=== PATIENT | female | born 1965 | race Caucasian/White ===

== ENCOUNTER 2019-12-06 17:59 | Emergency (ER) | payer BC, SELFPAY ==
[2019-12-06 18:00] VITALS: BP 161/99; PULSE 64; RESP 19; TEMP 36.6; O2SAT 99; BMI 25.0
[2019-12-06 18:23] LABS: Bacteria 0 SEEN /hpf (None Seen); Mucous, Urine 0 SEEN /hpf (<or=2+); Squamous Epithelial Cells - UA 0 SEEN /hpf (5-10); White Blood Cells 0 SEEN /hpf (0-5)
[2019-12-06 18:26] LABS: Color, Urine Yellow (Yellow); Glucose, Dipstick Normal (Normal); Ketone-Dipstick Negative (Negative); Leukocyte Esterase-Dipstick Negative /ul (Negative); Nitrite-Dipstick Negative (Negative); Occult Blood-Urine 25 /ul (Negative); Protein-Dipstick Negative (Negative); Specific Gravity, Urine 1.015 (1.002-1.030); Urine Bilirubin Dipstick Negative (Negative); Urine Clarity Clear (Clear); Urine Urobilinogen Normal (Normal)
[2019-12-06 18:42] LABS: Red Blood Cells-Urine 0-5 SEEN /hpf (0-5)
--- NOTE | 2019-12-06 19:07 | CT_ITS ---
STUDY: CT ABDOMEN AND PELVIS WITHOUT CONTRAST REASON FOR EXAM: Female, 54 years old. LT ABD PAIN STARTED @ 3PM RADIATION DOSAGE (If Supplied By Facility): CTDIvol = ( 7.00 ) mGy, DLP = ( 367.02 ) mGycm TECHNIQUE: Transaxial images were obtained from the dome of the diaphragm to the symphysis pubis without oral contrast, and without intravenous contrast. Sagittal and coronal images were reconstructed. Individualized dose optimization techniques were used for this CT. COMPARISON: None. FINDINGS: There is interstitial thickening and emphysematous changes at the lung bases. Heart is mildly enlarged. Normal liver. Normal gallbladder and extrahepatic biliary system. Normal spleen. Normal pancreas. Normal bilateral adrenal glands. Normal right kidney. There is moderate left renal pelvocaliectasis with fluid in the perirenal fat and periureteral fat with hydroureter secondary to a stone in the distal left ureter at the ureterovesical junction measuring approximately 3 mm in size Normal visualized stomach. Normal small intestine. Diverticular disease of the distal descending and sigmoid colon without evidence for acute diverticulitis.. No evidence for acute appendicitis Normal abdominal aorta. Normal inferior vena cava. Normal retroperitoneum. Normal urinary bladder. Normal abdominal wall. Dorsal spine demonstrates mild spondylosis CT/Abdomen/Pelvis without Cont IMPRESSION: Moderate left hydroureteronephrosis secondary to a tiny stone in the distal left ureter Diverticular changes of the descending and sigmoid colon without evidence for acute diverticulitis. Electronically Signed: Pramod Casey MD at 20:19 EDT , Service support ,
[2019-12-06 19:10] LABS: Absolute Lymphocyte Count 1.06 X10^3/uL (0.83-4.51); Absolute Neutrophil Count 7.9 X10^3/uL (2.0-7.7); Basophil# 0.04 X10^3/uL; Basophil% 0.4 % (0-1); Hematocrit 43.1 % (37-47); Hemoglobin 13.9 g/dL (12.0-15.0); Lymphocyte # 1.06 X10^3/ul (4.0); Lymphocyte % 11.5 % (19-41); Mean Corp Hgb Conc 32.3 g/dL (32-36); Mean Corpuscular Hgb 28.3 pg (27.0-32.0); Mean Corpuscular Volume 87.6 fL (81-99); Mean Platelet Vol. 10.5 fl (6.2-12.0); Monocyte# 0.16 X10^3/uL; Monocyte% 1.7 % (0-10); NRBC Flagged by Analyzer 0 % (0-5); Neutrophil # 7.85 X10^3/uL (2.7-7.7); Neutrophil % 85.2 % (47-70); Platelet Count 236 K/mm3 (150-450); RBC Distribution Width CV 13.4 % (11.6-14.6); Red Blood Count 4.92 M/mm3 (4.2-5.4); White Blood Count 9.2 K/mm3 (4.4-11.0)
[2019-12-06] MEDS: Ondansetron 4 MG/2 ML Vial IV (19:17)
[2019-12-06] MEDS: 0.9% Normal Saline 1,000 ML 1000 ML IV (19:17)
[2019-12-06] MEDS: Morphine 4 MG/ML Syringe IV (19:17)
[2019-12-06] MEDS: Ketorolac 30 MG/ML Syringe IV (19:17)
[2019-12-06 19:29] LABS: Anion Gap 8 (5-15); BUN 29 mg/dL (7-18); BUN/Creat Ratio 27.4 RATIO (10-20); Calcium,Total 9.5 mg/dL (8.5-10.1); Chloride 100 mmol/L (98-107); Creatinine, Serum 1.06 mg/dL (0.55-1.02); EST Glomerular Filtration Rate 57 mL/min (>60); Est Glom Filt Rate - Afr Amer 69 mL/min (>60); Estimated Creatinine Clearance 53.96 ml/min; Glucose 164 mg/dL (74-106); Potassium 3.6 mmol/L (3.5-5.1); Sodium Level 137 mmol/L (136-145)
[2019-12-06 20:00] VITALS: BP 162/88; PULSE 48; RESP 15
--- NOTE | 2019-12-06 21:14 | ED.DCSUM_ITS ---
- ER Visit Summary Date of Service: 12/06/19 Chief Complaint: Abdominal pain History of Present Illness: The patient is a 54 F who presents with abdominal pain that began today. Patient states the pain is over the left side of her abdomen. Patient describes the pain is sharp and aching. Patient states the pain is worse over the left lower quadrant but also radiates into her left flank area. Patient admits to some nausea and vomiting. Patient denies any hematemesis or coffee-ground emesis. Patient denies any diarrhea, melena, or hematochezia. Patient admits to urinary frequency but denies any dysuria or hematuria. Patient denies any history of prior similar symptoms. Patient states that there is no position of comfort. Physical Examination: Vital signs are stable. Patient is afebrile. Patient is in no acute distress. Oral mucosa is pink and moist. Neck is supple. Trachea is midline. There is no JVD. Heart was regular rate and rhythm. Lungs are clear and equal bilaterally. Abdomen is soft. Bowel sounds are normal. There is some mild left lower quadrant tenderness. There is no rebound or guarding noted. There is some mild left CVA tenderness. Cranial nerves II through XII are intact. There are no focal motor or sensory deficits noted. Extremities are intact. There is no calf tenderness or edema. Test Results: CBC, basic metabolic profile, and urinalysis were obtained and were essentially within normal limits. CT scan of the abdomen and pelvis was obtained. There is a 3 mm left distal ureteral calculus with hydronephrosis and hydroureter. This was interpreted by the radiologist and reviewed by myself. Emergency Department Course and Treatment: Patient was given IV fluids, Toradol, morphine, and Zofran here. Patient states her pain was resolved on reevaluation. Patient was instructed to drink plenty of fluids. Patient was given a prescription for short course of [place]. Patient was instructed to follow-up with her primary care physician in 5 to 7 days. Patient understood and was agreeable with the plan. All questions were answered. Disposition: Discharge home Impression: Left ureteral calculus This note was generated with [employer]er[employer] software. It may contain incorrect words, spelling, and punctuation that were not noted in review of the chart prior to signing ED Disposition - Plan for ED Patient: Disposition: Home or Assisted Living Diagnosis: Left ureteral calculus Instructions: ED Renal Stone w Colic Prescriptions: Hydrocodone Bitart/Apap 5-325 [[place] 5MG-325MG] 1 tab PO Q6H PRN PRN 3 Days #10 tab PRN Reason: Pain Prescription Printed Referrals: Yuridia Christiansen MD [Primary Care Provider] - Clifton Mercado MD [STAFF PHYSICIAN] -
[2019-12-06 21:37] VITALS: BP 149/90; PULSE 55; RESP 15
== END 2019-12-06 21:38 | disposition home or self-care (01) ==
PROVIDERS: Emergency Provider Emergency Medicine; PCP Internal Medicine
DX: N13.2 Hydronephrosis with renal and ureteral calculous obstruction (principal)
CPT/HCPCS: 74176; 80048; 81001; 85025; 96361; 96374; 96375; 99283; J7030; A4216; J2405

== ENCOUNTER → 2019-12-17 13:54 | Outpatient (CLI) | payer BC, SELFPAY ==
[2019-12-06 18:00] VITALS: BMI 25.0
--- NOTE | 2019-12-17 14:00 | RAD_ITS ---
STUDY: X-RAY - ABDOMEN/PELVIS REASON FOR EXAM: Female, 54 years old. Hx of kidney stones. checking for kidney stones on the left side. TECHNIQUE: AP supine and upright views of the abdomen and pelvis. COMPARISON: None. FINDINGS: Normal visualized lung bases. There is an abundance of fecal material throughout the colon. There is no demonstrated free abdominal air. The visualized liver, spleen and kidneys are grossly normal in size and morphology. Stable asymmetric 3 mm stone in the left hemipelvis could be within the distal left ureter Normal soft tissue structures. Normal visualized osseous structures. RAD/Abdomen Single View IMPRESSION: No acute findings, routine stool Likely distal left ureterolithiasis Electronically Signed: Thomas Suarez MD at 17:01 EDT , Service support ,
== END ==
PROVIDERS: PCP Internal Medicine; Referring Provider Urology; Visit Provider Urology
DX: N20.1 Calculus of ureter (principal)
CPT/HCPCS: 74018

== ENCOUNTER 2019-12-19 10:31 | Day surgery (SDC) | payer BC, SELFPAY ==
--- NOTE | 2019-12-19 | CALC_PTH ---
PATIENT: WILEY TAI [place] [facility] [id number] AGE/SX: 54/F ROOM: RE12/19/[address]: Dr. Clifton Mercado MD : 1965 BED: DIS: 12/19/2019 SPEC #: [id number] RECD: 12/19/19 15:11 STATUS: EDIN FELICIANO #: [id number] DANNIE: 12/19/19 00:[address]: Clifton Mercado DEPT: SURGICAL PATHOLOGY RECD BY: Ed York ENTERED: 12/20/19 08:35 SP TYPE: Calculi OTHR DR: Yuridia Christiansen MD Tissues: CALCULI Procedures: Surgery Specimen Level I HEADER OPERATION: Cystoscopy, left ureteroscopy, balloon dilatation, basket extraction PRE-OP DIAGNOSIS: Left ureteral calculus TISSUE SUBMITTED: Left ureteral calculus GROSS DIAGNOSIS A fragment of stone, clinically left ureteral calculus, submitted entirely for stone analysis. SJ:aure 12/20/19 COMMENT The calculus is submitted in its entirety for chemical stone analysis. The results from this study will be reported separately. GROSS DESCRIPTION Received is one container labeled with the patient's name and designated left ureteral calculus. The specimen consists of a fragment of black stone measuring 0.5 x 0.4 x 0.2 cm. The entire specimen is submitted for stone analysis. / DAVID:arue 12/20/19 CPT: 78819
[2019-12-19 11:06] VITALS: BP 145/88; PULSE 58; RESP 16; TEMP 37.4; O2SAT 99; BMI 24.5
[2019-12-19] MEDS: Lactated Ringers 1,000 ML 100 ML IV (11:17)
--- NOTE | 2019-12-19 12:16 | HP.PCM_ITS ---
Problem List (1) Ureteral calculus, left Status: Acute History of Present Illness Date of Admission: 12/19/19 Chief Complaint: Ureteral calculi left The patient is a 54 year old female who presents to my office with a stone in the distal left ureter and is been having severe pain off-and-on x-ray was done confirmed the stone has not passed yet. She presents today for ureteroscopy laser and extraction of stone fragment probable probable stent placement on the left side. Past Medical History Allergies No Known Allergies Allergy (Verified 12/18/19 09:35) Home Medications: Ambulatory Orders Medication Instructions Recorded Hydrocodone/Acetaminophen 1 ea PO PRN PRN 12/18/19 [Hydrocodon-Acetaminophen 5-325] Tamsulosin HCl [Flomax] 0.4 mg PO DAILY 12/18/19 Surgical History: no surgical history Smoking Status: Never smoker Tobacco Use: Non-smoker Review of Systems Constitutional: Denies: Chills, Fever, Weight Change HEENT: Denies: Head Aches, Sinus Congestion, Sinus Drainage Cardiovascular: Denies: Chest Pain, Palpitations Respiratory: Denies: Cough, Shortness of breath at rest, Sputum production Gastrointestinal: Denies: Abdominal Pain, Nausea, Vomiting Genitourinary: Denies: Dysuria Musculoskeletal: Denies: Joint Pain, Joint Tenderness Skin: Denies: Rash, Wounds Neurological: Denies: Numbness, Tingling, Focal weakness Psychiatric: Denies: Anxiety, Depression, Homicidal Ideations, Suicidal Ideatio ns Hematologic/ Lymphatic: Denies: Easy Bruising, Easy Bleeding VTE Information - Inpt Only VTE Present on Admission: No VTE Mechan Device Prophylaxis: SCD's Patient Problems: Active and Suspected Problems Ureteral calculus, left (Acute) - Physical Exam Vitals/I&O's: Vital Signs Temp Pulse Resp BP Pulse Ox 99.3 F H 58 L 16 145/88 H 99 12/19/19 11:06 12/19/19 11:06 12/19/19 11:06 12/19/19 11:12/19/19 11:06 Oxygen Delivery Method Room Air Weight: 66.9 kg Body Mass Index (BMI) 24.5 General: Alert, Oriented x3, Cooperative HEENT: Atraumatic, PERRLA, EOMI, Normocephalic Neck: Supple, No JVD, Negative Carotid Bruits Lungs: Clear to auscultation, Normal air movement Cardiovascular: Regular rate, No murmurs Abdomen: Bowel Sounds Present, Soft, Non Tender Extremities: No edema, Capillary Refill Less than 3 Seconds Skin: No rashes, No breakdown Musculoskeletal: No Tenderness to Palpation of Joints or Extremities Neurological: Cranial nerves II-XII grossly intact Psych/Mental Status: Normal Affect, Appropriate Laboratory Results 12/18/19 16:30: COVID-19 (NOREEN) Negative Current Medications Lactated Ringer's () 1,000 mls @ 100 mls/hr IV .Q10H NGHIA Last Admin: 12/19/19 11:17 Dose: 100 mls/hr Documented by: Assessment/Plan All Active Problems Ureteral calculus, left (Acute) Plan to proceed with left ureteroscopy laser and stent balloon dilation.
--- NOTE | 2019-12-19 12:17 | DCINST_ITS ---
Discharge Diet: Light diet - advance as tolerated Discharge Activity: Return to Normal Activity Call your doctor if your incision/area has: Sudden Increased Bleeding Call your doctor if you observe: Fever of 101 or Higher Suture Line Care: Avoid Pulling/Pushing, Avoid Pinching/Bending Allergies/Adverse Reactions: Allergies No Known Allergies Allergy (Verified 12/18/19 09:35) Medications to take at Discharge Hydrocodone/Acetaminophen [Hydrocodon-Acetaminophen 5-325] 1 ea PO PRN PRN 12/18/19 Tamsulosin HCl [Flomax] 0.4 mg PO DAILY 12/18/19 Primary Care Physician: Yuridia Christiansen MD [Primary Care Provider] - Test Results: Test results from this visit will be discussed in further detail at your follow- up appointment, if applicable. Please Follow Up With: Clifton Mercado MD When: please call to make an appointment.
[2019-12-19] MEDS: Ketorolac 15 MG/ML Vial IV (12:18)
[2019-12-19] MEDS: Cefazolin 2 GM in 0.9% Normal Saline 100 ML IV (12:20)
--- NOTE | 2019-12-19 12:44 | PCM.OPRPT ---
Problem List (1) Ureteral calculus, left Status: Acute Report of Operation Date of Procedure: 12/19/19 Pre-Operative Diagnosis: Left ureteral calculi Post-Operative Diagnosis: Same Surgery/Procedure Performed:: Cystoscopy, balloon dilation of the left ureter, ureteroscopy basket of stone and extraction and left stent placement, interpretation fluoroscopic images. Description of Surgical Findings:: 54-year-old female has failed to pass the stone spontaneously been having pain off-and-on today working to proceed with ureteroscopy and laser and extraction of stone. She was taken back to the operating room after smooth induction of general anesthesia she was placed in dorsolithotomy position and went into the bladder with a 21 Chinese rigid cystoscopy, the entire bladder was normal the trigone was normal there is no tumors or stones seen within the bladder I then cannulated the left ureteral orifice the wire went up quite easily and then on fluoroscopy could think he could still see a stone there so I put a balloon dilator over the wire balloon dilated the distal ureter with a 12 Chinese balloon dilator I then left the wire in place the next the wire went in with a offset SlimLine rigid ureteroscope was able to get into the ureter quite easily I then encountered the stone in the distal ureter I used the basket and I grabbed the stone in entirety and then gently pulled out the ureter. And then over the wire we then advanced a stent up into the kidney under fluoroscopic guidance. Once the stent was in good position we pulled the wire the stent: The kidney bladder good position the bladder was drained patient anesthetic reversed taken back to PACU good condition we will see her next week to remove the stent. Interpretation fluoroscopic images, on fluoroscopy we could see a stone in the distal ureter and the stent was put in at the end of the case it could see the stent coil proper properly in the bladder. Type of Anesthesia:: General Drains: stent left side - Admit VTE Documentation VTE Present on Admission: No VTE Mechan Device Prophylaxis: SCD's
[2019-12-19 13:03] VITALS: BP 132/91; BP 145/88; PULSE 94; RESP 16; TEMP 36.8; O2SAT 95
[2019-12-19 13:15] VITALS: BP 139/96; BP 145/88; PULSE 76; RESP 16; O2SAT 96
[2019-12-19 13:18] VITALS: BP 139/96; BP 145/88; PULSE 86; RESP 16; TEMP 36.8; O2SAT 97
[2019-12-19 14:00] VITALS: BP 135/77; BP 145/88; PULSE 79; RESP 18; TEMP 36.8; O2SAT 96
== END 2019-12-19 14:05 | disposition home or self-care (01) ==
LOC: SDC 10:31 → AC 10:33
PROVIDERS: Anesthesiology; PCP Internal Medicine; Referring Provider Urology; Visit Provider Urology
PROC: 0TJ98ZZ Inspection of Ureter, Via Natural or Artificial Opening Endoscopic (ICD-10-PCS; CPT 52352; principal; 2019-12-19 11:50)
DX: N20.1 Calculus of ureter (principal); Z11.59 Encounter for screening for other viral diseases; R01.1 Cardiac murmur, unspecified
CPT/HCPCS: 52332; 52352; 76000; 82360; 87635; 88300; G2023; J7120; C1769; C2617; J2405; U0003

== ENCOUNTER → 2021-04-05 14:34 | Outpatient (CLI) | payer BC, SELFPAY ==
--- NOTE | 2021-04-05 14:45 | RAD_ITS ---
HISTORY: CALCULUS OF KIDNEY EXAMINATION/TECHNIQUE: XR Abdomen 1 View: Supine AP view, 2 images COMPARISON: Abdominal radiographs from 12/17/19 FINDINGS: LINES AND TUBES: None. BOWEL GAS PATTERN: Non-obstructive. No pathologic bowel or stomach distention. FREE AIR: Not assessed on a single supine view. CALCIFICATIONS: No abnormal calcifications observed. LOWER CHEST: No acute pathology. BONES AND SOFT TISSUES: Minimal levoscoliotic curvature lumbar spine again noted with degenerative disc space narrowing at L4-5. RAD/Abdomen Single View IMPRESSION: No radiographic evidence of nephrolithiasis or other acute abnormality. Follow-up as clinically warranted. at 2352 Reported and signed by: Abdullahi Greenberg MD Electronically Signed: Abdullahi Greenberg MD at 23:51 EDT Tel , Service support ,
== END ==
PROVIDERS: PCP Internal Medicine; Visit Provider Urology
DX: N20.0 Calculus of kidney (principal)
CPT/HCPCS: 74018

== ENCOUNTER 2023-12-11 16:00 | Emergency (ER) | payer OTHER, SELFPAY ==
[2023-12-11 16:04] VITALS: BP 179/104; PULSE 79; RESP 18; TEMP 36.4; O2SAT 99
--- NOTE | 2023-12-11 17:02 | EDS_ITS ---
HPI History of Present Illness Chief Complaint: Laceration Detail of Chief Complaint: Laceration to right thumb Narrative Narrative: Patient presents with laceration to right thumb that occurred while at work today. Patient states that she was using a stack cutter when her thumb accidentally bumped the blade and sustained laceration. She went to urgent care where they attempted to perform a digital block and stop the bleeding unsuccessfully so she was referred to the emergency department. Patient is right-hand dominant. She is up-to-date on tetanus. PFSH PFSH Home Medications ?Medication ?Instructions ?Recorded ?Last Taken ?Type tamsulosin 0.4 mg capsule 0.4 mg PO DAILY 12/18/19 Unknown History acetaminophen 500 mg tablet 500 mg PO Q4H PRN PRN Pain Score 12/19/19 Unknown Rx 1-03/21 #20 tabs ibuprofen 600 mg tablet 600 mg PO Q6H PRN PRN Pain Score 12/19/19 Unknown Rx 1-03/21 #20 tabs phenazopyridine 100 mg tablet 100 mg PO TID #14 tabs 12/19/19 Unknown Rx cephalexin 500 mg capsule 500 mg PO Q6 #40 CAPSULES 12/11/23 Unknown Rx cephalexin 500 mg capsule 500 mg PO Q6 #40 CAPSULES 12/11/23 Unknown Rx hydrocodone-acetaminophen 5-325mg 1 tab PO Q4H PRN PRN Pain 2 days 12/11/23 Unknown Rx 5mg-325mg #14 TABLETS hydrocodone-acetaminophen 5-325mg 1 tab PO Q4H PRN PRN Pain 2 days 12/11/23 Unknown Rx 5mg-325mg #14 TABLETS Allergy/AdvReac Type Severity Reaction Status Date / Time No Known Allergies Allergy Verified 12/11/23 16:04 Social History Smoking Status: Never smoker ROS ROS ED Review of Systems ROS Unobtainable: other Constitutional Constitutional ED: Reports lethargy; Denies chills, fever(s), sweats or weight loss Eyes Eyes: Denies blurry vision, change in vision or diplopia ENT ENT ED: Denies rhinorrhea or sore throat Cardiovascular Cardiovascular: Denies chest pain, orthopnea or racing heartbeat Respiratory/Chest Respiratory/Chest: Denies cough, dyspnea, dyspnea on exertion, orthopnea or sputum Gastrointestinal Gastrointestinal: Denies abdominal pain, diarrhea, nausea or vomiting Genitourinary Genitourinary ED: Denies dysuria, hematuria or urinary frequency Musculoskeletal Musculoskeletal: Reports other Details: Right thumb laceration ; Denies arthralgias, back pain, myalgias or neck pain Integumentary Denies abscess, Abrasions or rash Neurologic Neurologic: Denies headache(s) or weakness Psychiatric Psychiatric: Denies anxiety, depression or suicidal thoughts Endocrine Endocrinology: Denies polydipsia, polyphagia or polyuria Hematologic/Lymphatic Hematologic/Lymphatic: Denies easy bleeding, easy bruising or lymphadenopathy Allergic/Immunologic Allergic/Immunologic ED: Denies mouth swelling, tongue swelling or urticaria EXAM Physical Exam Const Vital Signs: 12/11/23 16:04 Temperature 97.6 F L Temperature Source Temporal Pulse Rate 79 Respiratory Rate 18 Blood Pressure 179/104 H Blood Pressure Mean 129 Pulse Ox 99 Oxygen Delivery Method Room Air Positive well nourished and well developed General Appearance ED: well developed and NAD HEENT Reports TM's clear and moist mucous membranes normocephalic and atraumatic; Negative for trauma or tenderness Tympanic Membrane ED: Yes TM's clear Eyes PERRL and EOMs intact bilaterally General Eye ED: Negative for pale conjunctiva or scleral icterus Neck no lymphadenopathy, supple and no JVD General: Negative for tenderness Chest Wall inspection of chest normal and palpation of chest normal Chest: Negative for tenderness Resp normal respiratory effort and clear to auscultation bilaterally Effort and Inspection: Negative for respiratory distress or pain with movement Auscultation: Negative for rhonchi, wheezes or diminished lung sounds Cardio regular rate, regular rhythm, S1 normal heart sound, S2 normal heart sound and no murmurs Peripheral Pulses: pulses 2+ throughout GI normal to inspection, nondistended, normoactive bowel sounds, soft to palpation, non-tender, non-distended and no masses Back/Spine no CVA tenderness and no thoracic nor lumbar tenderness Extremity Extremity Narrative: Right thumb-patient has an avulsion type laceration through the dorsum of the nail with active venous oozing of blood. Neurovascularly intact otherwise. General Extremety ED: Negative for edema General Extremity: Negative for edema Neuro oriented x3, CN's II-XII intact bilaterally, no sensory deficits noted and gait normal Sensorium / Orientation: awake, alert, oriented to person, oriented to place and oriented to time Motor Exam: strength 5/5 throughout and strength abnormal Psych mental status grossly normal Skin no rashes or lesions noted and no wounds MDM MDM MDM Narrative Medical decision making narrative: Patient has avulsion of the nail into the nailbed. Active oozing. Will obtain an x-ray. I did use Gelfoam and attempt to stop the bleeding. May need to perform digital block for pain control. Patient did have a digital block performed with good anesthesia. She had 8 cc of 1% lidocaine used. I was able to use Gelfoam to obtain good hemostasis. X-ray obtained showed cortical irregularity at the distal portion of the distal phalanx. I am concerned that she does not have the tissue to cover the distal phalanx very well. I discussed case with orthopedic surgeon on-call Dr. Rodgers who recommended that we refer patient to hand surgery. Discussed case with Dr. Arias at [facility] who would be happy to see patient in follow-up. He did asked that we splint the patient's thumb and started on Keflex which will be done. Patient will also be given a prescription for [place] for pain. Radiography Diagnostic Testing: Three-view x-rays of the right thumb obtained interpreted by myself as fracture of the distal phalanx of the right thumb. Radiology in agreement. Discharge Plan Triage Chief Complaint: Laceration ED Provider: Travis Reynolds Dx/Rx/DC Orders Clinical Impression: Open fracture of right thumb, Avulsion of nail of right thumb Instructions: ED Detached Fingernail or Toenail, ED Fracture, Thumb Prescriptions: New hydrocodone-acetaminophen 5-325 mg tablet 1 tab PO Q4H PRN PRN (Reason: Pain) 2 Days Qty: 14 0RF cephalexin 500 mg capsule 500 mg PO Q6 Qty: 40 0RF hydrocodone-acetaminophen 5-325 mg tablet 1 tab PO Q4H PRN PRN (Reason: Pain) 2 Days Qty: 14 0RF cephalexin 500 mg capsule 500 mg PO Q6 Qty: 40 0RF Discontinued hydrocodone-acetaminophen 1 EACH tablet 1 ea PO PRN PRN (Reason: Pain Or Fever) cephalexin 500 MG capsule 500 mg PO Q8 Qty: 15 0RF No Action tamsulosin 0.4 MG capsule 0.4 mg PO DAILY acetaminophen 500 MG tablet 500 mg PO Q4H PRN PRN (Reason: Pain Score 1-10/10) Qty: 20 0RF phenazopyridine 100 MG tablet 100 mg PO TID Qty: 14 0RF ibuprofen 600 MG tablet 600 mg PO Q6H PRN PRN (Reason: Pain Score 1-10/10) Qty: 20 0RF Primary Care Provider: Yuridia Christiansen Referrals: Yuridia Christiansen MD [[facility]] - Activity Restrictions/Additional Instructions: Call 's office for follow up at tomorrow. Print Language: Montenegrin Disposition Disposition: Home, Self Care
--- NOTE | 2023-12-11 17:05 | RAD_ITS ---
INDICATION: injury EXAMINATION/TECHNIQUE: X-RAY - RIGHT HAND XR Fingers 3 VIEWS COMPARISON: FINDINGS: SOFT TISSUES: There is soft tissue injury at the tip of the thumb. No radiopaque foreign body. BONES/JOINTS: Subtle cortical injury regularity at the distal tip of the distal phalanx.. Normal alignment. Preservation of the joint space.. No sclerotic or destructive changes observed. RAD/Finger(s) Min 2 Views IMPRESSION: There is soft tissue injury at the tip of the thumb. Subtle cortical irregularity at the distal tip of the distal phalanx.. . Electronically Signed: Bran Cortes DO at 17:27 EDT Reading Location ID and State: [facility] / [place] Tel [phone], Service support ,
[2023-12-11] MEDS: Lidocaine 1% (20 ml mdv) 20 ML Vial 10 ML INFILT (17:23)
[2023-12-11 18:00] VITALS: BP 155/98; PULSE 76; RESP 18; O2SAT 98
[2023-12-11] MEDS: Cephalexin 250 MG Capsule 500 MG PO (18:29)
[2023-12-11] MEDS: HYDROcodone Bitartrate/Apap 5/325 Tablet PO (18:30)
[2023-12-11 18:47] VITALS: BP 155/98; PULSE 76; RESP 18; TEMP 36.7; O2SAT 98
== END 2023-12-11 18:47 | disposition home or self-care (01) ==
PROVIDERS: Emergency Provider Emergency Medicine; PCP Internal Medicine; Visit Provider Emergency Medicine
DX: S62.501D Fracture of unspecified phalanx of right thumb, subsequent encounter for fracture with routine healing (principal); S61.101D Unspecified open wound of right thumb with damage to nail, subsequent encounter; W31.89XD Contact with other specified machinery, subsequent encounter; Y93.89 Activity, other specified; Y99.0 Civilian activity done for income or pay; Y92.89 Other specified places as the place of occurrence of the external cause
CPT/HCPCS: 64450; 73140; 99282

== ENCOUNTER 2024-02-01 09:00 | Outpatient (RCR) | payer OTHER, SELFPAY ==
--- NOTE | 2024-01-01 16:37 | HP.OTEVAL_ITS ---
Patient's Visit Information Visit Information Visit Information: WILEY TAI is a 58 year old F, referred to Occupational Therapy by Dr. Danny Arias MD, with a diagnosis of right thumb traumatic amputation. Date of Evaluation: 01/01/24 Occupational Therapist: Jennifer Kinsey, AMYR/Dayana, CHT Subjective Subjective: This 58 year old female was seen for OT eval with dx of right thumb Traumatic amputation. pt states this occurred on December 10 while at work. pt went to ER and was sent to [facility]. Pt has sx on December 12 for sx. pt works at [employer] 15 hrs a week. 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 Pain right thumb: Current Pain Intensity: 0 Pain Intensity Range: 6 ROM CMC: right 15* left 15* MP: right 30* left 50* IP: right 10* Left 60 Strength Strength Comments: will test later date Sensation Sensation Comments: pt currently hyper sensitive at amputation tip of right thumb states the idea of touching different textures makes her get the chills Goals Goal:100% adherence to protocol: Yes Goal:Daily scar massage when approriate: Yes Goal:ROM equal to unaffected hand: Yes Goal:Rounding Machine Tender/Pinch strength at least 75% of unaffected hand: Yes Comment: will initiate at week 6-8 or advisement Goal:No pain with affected hand use: Yes Goal:Full use of affected hand in daily activities including work: Yes Goal:Decrease scar hypersensitivity: Yes Rehabilitation General Assessment: pt arrives 2 weeks and 6 days s/p from right thumb tip amputation. pt arrives with protective orthosis on her right thumb. Pt is limited with use of right hand with ADLs and IADLs due to newly healing structures and hypersensitivity. Pt would benefit from from skilled OT services 1-2x week for 8 weeks to recover pt to a PLOF and decrease right thumb sensitivity. Today therapist ed. pt on ROM, desensitization courtney. and use of protective orthosis. Pt demo understanding and agree to POC. Rehabilitation Potential: Good Anticipated Interventions Anticipated Interventions: A/AAROM/PROM, Strengthening, Scar Care, Triggerpoint Release, Desensitization, Sensory Retraining, Modalities, Orthoses, Joint Protection/Energy Conservation, Ergonomic Education, Fine Motor Coord/Roney, Education re assistive Equipment, Education re Diagnosis, Education re Skin Care and Precautions and Home Program Visit Plan Frequency: 1-2x /Week Duration: 2 Months TEXT: Thank you for the opportunity to evaluate your patient. For Medicare and Medicare HMO plans, please review the plan of care and approve it. It will need to be FAXED BACK to us at [phone] for Medicare purposes. Please let me know if there are questions or concerns regarding this plan of care. Physician Signature: Date:
--- NOTE | 2024-01-19 08:10 | HP.OTREVAL ---
Re-Evaluation Intro: Dr. Danny Arias MD, It has been my pleasure to treat WILEY TAI over the last 6 visits for right thumb traumatic amputation. Please see the progress note below for an update on the occupational therapy plan of care! Subjective Subjective: pt arrives feeling good- feeling ready to be discharged and confident with home program. Objective Objective/Function: R thumb IP 33* increase from 10* Right MP 40* increase from 30* right CMC 15* equal to unaffected side pt making great gains in her recovery- pt demo comprehensive understanding of sensory desensitization, ROM ex and use of thumb with ADLs and work tasks- pt will cont on her own for 1 week and new measurements taken 02/01/[address] Rene. Plan Plan Plan: change in POC- pt to cont. with HEP return in 1 week for measurements prior to Dr. rene. pt agrees to cont.with her desensitization, return to use with work and ADLs. Goals Goals Patient Goals: Regain Mobility, Decrease Pain, Return to Work, Use Hand/Wrist/Arm Normally Again, Be More Independent in ADLS and Decrease Sensitivity Goal:100% adherence to protocol: Yes Goal:Daily scar massage when approriate: Yes Goal:ROM equal to unaffected hand: Yes Goal:Child Development Teacher/Pinch strength at least 75% of unaffected hand: Yes Goal:No pain with affected hand use: Yes Goal:Full use of affected hand in daily activities including work: Yes Goal:Decrease scar hypersensitivity: Yes Anticipated Interventions Anticipated Interventions Anticipated Interventions: A/AAROM/PROM, Strengthening, Scar Care, Triggerpoint Release, Desensitization, Sensory Retraining, Modalities, Orthoses, Joint Protection/Energy Conservation, Ergonomic Education, Fine Motor Coord/Roney, Education re assistive Equipment, Education re Diagnosis, Education re Skin Care and Precautions and Home Program Re-Evaluation Ending Re-evaluation ending: Please do not hesitate to contact me at [phone] by phone or if you have questions or concerns regarding this new plan of care! Sincerely, Jennifer Kinsey, AMYR/L, CHT
--- NOTE | 2024-02-01 09:17 | OTREVAL_ITS ---
Re-Evaluation Intro: Dr. Danny Arias MD, It has been my pleasure to treat WILEY TAI over the last 7 visits for right thumb traumatic amputation. Please see the progress note below for an update on the occupational therapy plan of care! Subjective Subjective: pt arrives states she is feeling great- thumb nail still sensitive but nothing she feels she is concerned with. pt states she is IND with ADLs and IADls. 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 at this time pt agrees to HEP and D/C. Plan Plan Duration: 2 Months Plan: D/C with HEP unless advises otherwise Goals Goals Goal Progress: Goal Met Patient Goals: Regain Mobility, Decrease Pain, Return to Work, Use Hand/Wrist/Arm Normally Again, Be More Independent in ADLS and Decrease Sensitivity Goal Progress: Goal Met Goal:100% adherence to protocol: Yes Goal:Daily scar massage when approriate: Yes Goal Progress: Goal Met Goal:ROM equal to unaffected hand: Yes Goal Progress: Goal Met Goal:Leg Breaker/Pinch strength at least 75% of unaffected hand: Yes Goal Progress: Goal Met Goal:No pain with affected hand use: Yes Goal Progress: Goal Met Goal:Full use of affected hand in daily activities including work: Yes Goal Progress: Goal Met Goal:Decrease scar hypersensitivity: Yes Goal Progress: Progressing Anticipated Interventions Anticipated Interventions Anticipated Interventions: A/AAROM/PROM, Strengthening, Scar Care, Triggerpoint Release, Desensitization, Sensory Retraining, Modalities, Orthoses, Joint Protection/Energy Conservation, Ergonomic Education, Fine Motor Coord/Roney, Education re assistive Equipment, Education re Diagnosis, Education re Skin Care and Precautions and Home Program Re-Evaluation Ending Re-evaluation ending: Please do not hesitate to contact me at [phone] by phone or if you have questions or concerns regarding this new plan of care! Sincerely, Jennifer Kinsey, OTR/L, CHT
--- NOTE | 2024-02-05 09:12 | HP.OTDCSUM_ITS ---
Discharge Summary D/C Summary: It has been my pleasure to treat WILEY TAI under orders from Dr. Danny Arias MD, for the diagnosis of right thumb traumatic amputation for a total of 7 visit(s). Please see the following information for a summary of their discharge status. 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 at this time pt agrees to HEP and D/C. Goals Patient Goals: Regain Mobility, Decrease Pain, Return to Work, Use Hand/Wrist/Arm Normally Again, Be More Independent in ADLS and Decrease Sensitivity Goal Progress: Goal Met Goal:100% adherence to protocol: Yes Goal Progress: Goal Met Goal:Daily scar massage when approriate: Yes Goal Progress: Goal Met Goal:ROM equal to unaffected hand: Yes Goal Progress: Goal Met Goal:Early Childhood Associate/Pinch strength at least 75% of unaffected hand: Yes Goal Progress: Goal Met Goal:No pain with affected hand use: Yes Goal Progress: Goal Met Goal:Full use of affected hand in daily activities including work: Yes Goal Progress: Goal Met Goal:Decrease scar hypersensitivity: Yes Goal Progress: Progressing Plan Plan: D/C with HEP unless advises otherwise D/C Information Discharge Comments: pt progressing well with her dx and POC. pt reports 90-95% ability. pt demo understanding of sensory re-ed. pt agrees to D/C d/c sentence: If there are questions or concerns regarding this patient's occupational therapy, please fell free to call me at [phone]. Thank you for the referral of this patient. Sincerely, Jennifer Kinsey, OTR/L, CHT
== END 2024-02-01 19:00 | disposition home or self-care (01) ==
LOC: OT 09:00
PROVIDERS: PCP Internal Medicine; Visit Provider Orthopaedic Surgery
DX: S68.011D Complete traumatic metacarpophalangeal amputation of right thumb, subsequent encounter (principal)
CPT/HCPCS: 97110; 97166; 97530

== ENCOUNTER → 2024-06-21 | Outpatient (CLI) | payer OTHER, SELFPAY ==
--- NOTE | 2024-06-21 12:20 | ECHOD_ITS ---
Reason For Study: ARRHYTHMIA Procedure This was a 2D Doppler, Color Flow transthoracic echocardiogram. Exam performed in department. Left Ventricle Normal LV size. The left ventricular ejection fraction is 55 %. No regional wall motion abnormalities noted. Right Ventricle Normal RV size. Normal systolic function. Atria Normal left atrium. Normal right atrium. Mitral Valve Normal mitral valve. Tricuspid Valve Normal tricuspid valve. Mild tricuspid valve insufficiency. Aortic Valve Trisinus/trileaflet aortic valve. Pulmonic Valve Normal pulmonic valve. Great Vessels Normal aortic root. The pulmonary artery is normal size. Inferior vena cava collapse with respiration. Pericardium/Pleural No pericardial effusion. MMode/2D Measurements & Calculations LVIDd: 4.2 cm IVSd: 1.1 cm LVOT diam: 2.0 cm LVIDs: 2.5 cm LVPWd: 1.1 cm LVOT area: 3.1 cm2 RVDd: 2.8 cm FS: 40.7 % Ao root diam: 3.3 cm LAV(MOD-sp4): 24.0 ml LVAd ap4: 25.4 cm2 LVLd ap4: 8.3 cm EDV(MOD-sp4): 65.0 ml EDV(sp4-el): 65.6 ml LVAs ap4: 16.0 cm2 LVLs ap4: 7.1 cm ESV(MOD-sp4): 32.4 ml ESV(sp4-el): 30.7 ml EF(MOD-sp4): 50.1 % EF(sp4-el): 53.3 % SV(MOD-sp4): 32.6 ml SV(sp4-el): 34.9 ml LA A4 area: 11.3 cm2 SI(MOD-sp4): 18.6 ml/m2 LA dimension(2D): 3.5 cm RA A4 area: 13.7 cm2 Time Measurements MV dec time: 0.10 sec Doppler Measurements & Calculations MV E max avi: 70.7 cm/sec Lat Peak E' Avi: 16.0 cm/sec Med Peak E' Avi: 8.4 cm/sec MV A max avi: 79.4 cm/sec E/E' lat: 4.4 E/E' med: 8.4 MV E/A: 0.89 MV V2 max: 100.2 cm/sec Ao V2 max: 148.3 cm/sec MV max P.0 mmHg MV dec slope: 691.0 cm/sec2 Ao max P.8 mmHg MV V2 mean: 57.5 cm/sec Ao V2 mean: 104.1 cm/sec MV mean P.5 mmHg Ao mean P.0 mmHg MV V2 VTI: 23.2 cm Ao V2 VTI: 33.0 cm AV (velocity ratio): 0.82 MVA(VTI): 3.6 cm2 DUYEN(I,D): 2.5 cm2 DUYEN(V,D): 2.6 cm2 LV V1 max: 127.5 cm/sec SV(LVOT): 83.2 ml PA V2 max: 102.1 cm/sec LV V1 max P.5 mmHg PA V2 mean: 71.0 cm/sec LV V1 mean P.9 mmHg LV V1 mean: 93.1 cm/sec LV V1 VTI: 27.1 cm ECHO/Echo Complete Interpretation Summary The left ventricular ejection fraction is 55 %. Normal LV size. No regional wall motion abnormalities noted. Structurally normal valves. Ordering Physician: Darius Burkett Referring Physician: Darius Burkett Performed By: Claribel Wallis RCS
--- NOTE | 2024-06-21 13:37 | STRESSREP ---
Stress Test Report Exercise stress test. 58-year-old lady with a history of chest pain Stress protocol: Resting EKG demonstrates normal sinus rhythm with a rate of 63 bpm resting blood pressure is 138/80 mmHg. The patient exercised according to the regular [place] protocol for a total duration of 12 minutes attaining a maximum heart rate of 157 bpm which was 97% of maximum predicted heart rate; the maximum workload was 13.4 metabolic equivalents. At rest there were no ST or T wave changes noted to suggest ischemia and at peak exercise upsloping ST changes only were noted which did not meet the criteria for ischemia. No clinical angina was noted the test was terminated due to the target heart rate being achieved/fatigue. The peak blood pressure was 160/70 mmHg. Rate-pressure product was 24,800. Conclusion: Stress test with no EKG criteria for ischemia at a high workload.
== END | disposition home or self-care (01) ==
LOC: CVS 12:16
PROVIDERS: PCP Internal Medicine; Referring Provider Internal Medicine Cardiovascular Disease; Visit Provider Internal Medicine Cardiovascular Disease
DX: I47.10 Supraventricular tachycardia, unspecified (principal)
CPT/HCPCS: 93017; 93306